=== PATIENT | female | born 1960 | race Caucasian/White ===

== ENCOUNTER 2018-10-17 08:51 | Day surgery (SDC) | payer OTHER ==
[2018-10-17] MEDS ORDERED: Propofol 200 MG/20 ML SDV ONE (09:20)
[2018-10-17] MEDS ORDERED: fentaNYL 100 MCG/2 ML SDV ONE (09:21)
[2018-10-17] MEDS: Lactated Ringers 1,000 ML IV SCH (09:47)
--- NOTE | 2018-10-17 11:22 | OR ---
PREOPERATIVE DIAGNOSIS: History of polyps. POSTOPERATIVE DIAGNOSIS: Pancolonic diverticulosis. No polyps. PROCEDURE PROPOSED: Total flexible colonoscopy. PROCEDURE DONE: Total flexible colonoscopy. INDICATION: This is a 57-year-old female who 3 years ago had several polyps removed. She was recommended to come in for a 3-year recheck. TECHNIQUE: The patient was brought to the endoscopy suite, placed in left lateral decubitus position. She was sedated per [employer] with propofol. The flexible video colonoscope was then passed transanally and under visualization advanced to the cecum. Examination revealed a normal ascending, transverse, descending, and sigmoid colon as far as no signs of any polyps or colitis, but she did have pancolonic diverticulosis starting predominantly in the sigmoid colon, but she had several diverticular orifices throughout the entire colon. The rectum was spared of any polyps or diverticulosis and the scope was then withdrawn. The patient tolerated procedure well. FINAL IMPRESSION: 1. Pancolonic diverticulosis, otherwise normal exam. No polyps. 2. History of previous polyps. PLAN: At this point, I feel that she should have colonoscopies every 5 years hereafter. SCM: 10/17/2018 10:39:14 MODL: 10/17/2018 11:08:03 /[id number]
== END 2018-10-17 11:12 | disposition home or self-care (01) ==
LOC: VM.SDS 08:51
PROVIDERS: ATTEND Surgery
DX: Z12.11 Encounter for screening for malignant neoplasm of colon (principal); K57.30 Diverticulosis of large intestine without perforation or abscess without bleeding; E78.1 Pure hyperglyceridemia; E78.5 Hyperlipidemia, unspecified; E66.9 Obesity, unspecified; Z68.33 Body mass index [BMI] 33.0-33.9, adult; Z79.899 Other long term (current) drug therapy; Z86.010 Personal history of colon polyps
CPT/HCPCS: 45378; J2704; J3010; J7120